=== PATIENT | male | born 1965 | race Caucasian/White ===

== ENCOUNTER → 2024-12-18 10:23 | Outpatient (REF) | payer OTHER, SELFPAY | LOC: HWLAB 10:23 | PROVIDERS: ATTENDING PHYSICIAN Nurse Practitioner Family | DX: Z00.00 Encounter for general adult medical examination without abnormal findings (principal); E78.5 Hyperlipidemia, unspecified; Z13.31 Encounter for screening for depression; R19.7 Diarrhea, unspecified; K59.00 Constipation, unspecified; Z12.5 Encounter for screening for malignant neoplasm of prostate; Z12.11 Encounter for screening for malignant neoplasm of colon; Z80.52 Family history of malignant neoplasm of bladder | CPT/HCPCS: 93005 ==